=== PATIENT | female | born 1945 | race Caucasian/White ===

== ENCOUNTER 2022-07-19 15:58 | Emergency (ER) | payer MEDICARE, BC ==
[~2022-07-19 15:58] MED LIST: ALPRAZOLAM1 MG PO; ASPIR 8181 MG PO; CENTRUM SILVER1 EAC4 PO; DESYREL 50 MG T50 MG PO; ELIQUIS 2.5 MG2.5 MG PO; GLUCOPHAGE 500500 MG PO; METOPROLOL TART25 MG PO; NORCO 7.5-3251 EACH PO; SERTRALINE HCL100 MG PO; VITAMIN C500 M4 PO
[2022-07-20] MEDS ORDERED: IBUPROFEN600 MG PO (00:23)
[2022-07-20] MEDS ORDERED: NORFLEX 100 MG100 MG PO (00:23)
== END 2022-07-20 01:30 | disposition home or self-care (01) ==
LOC: ER1 15:58
DX: M54.32 Sciatica, left side (principal); E11.9 Type 2 diabetes mellitus without complications; I10 Essential (primary) hypertension; J44.9 Chronic obstructive pulmonary disease, unspecified; G47.30 Sleep apnea, unspecified; Z96.651 Presence of right artificial knee joint; Z85.818 Personal history of malignant neoplasm of other sites of lip, oral cavity, and pharynx; Z90.710 Acquired absence of both cervix and uterus
CPT/HCPCS: 73502; 96372; 99283; J1100; J1885; J2360